=== PATIENT | female | born 1950 | race Two or more races ===

== ENCOUNTER 2019-03-20 06:10 | Day surgery (SDC) | payer OTHER ==
[~2019-03-20 06:10] MED LIST: ASA81 MG PO; CALCIUM500 M2 PO; NAPR500T14 PO; PRILOSEC OTC20 MG PO; VITAMIN D2000 UNIT PO; ZANTAC300 MG PO
[2019-03-20] MEDS ORDERED: PERCOCET 5-3251 EACH PO (08:34)
[2019-03-20] MEDS ORDERED: RECTICARE30 GM TOP (08:34)
== END 2019-03-20 13:10 | disposition home or self-care (01) ==
LOC: CIR.AMB 06:10
DX: K60.1 Chronic anal fissure (principal); K62.4 Stenosis of anus and rectum